=== PATIENT | male | born 2000 | race African-American/Black ===

== ENCOUNTER 2023-11-20 04:33 | Emergency (ER) | payer SELFPAY ==
[~2023-11-20] VITALS: Ht 180.3 cm; Wt 70.0 kg
[2023-11-20] MEDS ORDERED: TETANUS, DIPHTHERIA, PERTUSSIS VAC/PF 0.5ML (>10YR OLD) IM ONE (04:45)
[2023-11-20] MEDS ORDERED: CEFTRIAXONE 1GM/50ML 50 ML IV ONE (04:45)
[2023-11-20 05:00] VITALS: PULSE 118; RESP 20
[2023-11-20] MEDS ORDERED: MIDAZOLAM HCL 2 MG/2 ML VIAL ONE (05:09)
[2023-11-20] MEDS ORDERED: FENTANYL 2500MCG/250ML PMX 250 ML IV ONE (05:15)
[2023-11-20] MEDS ORDERED: CEFTRIAXONE 1GM/50ML 50 ML IV NR (05:15)
[2023-11-20 05:42] VITALS: O2SAT 100
[2023-11-20] MEDS: KETAMINE HCL 50 MG/ML 10ML IM ONE ×2 (05:42)
[2023-11-20] MEDS: PROPOFOL 10MG/ML 100ML 100 ML IV SCH (05:42)
[2023-11-20] MEDS: MIDAZOLAM HCL 2 MG/2 ML VIAL IV ONE (05:42)
[2023-11-20 05:54] VITALS: BP 175/84; PULSE 110; RESP 23
[2023-11-20] MEDS: FENTANYL CITRATE 2,500 MCG in SODIUM CHLORIDE 0.9% 200 ML IV PRN (05:54)
[2023-11-20] MEDS ORDERED: ETOMIDATE 2MG/ML 10ML VIAL IV ONE (09:00)
== END 2023-11-20 05:50 | disposition short-term general hospital (02) ==
LOC: ER 04:39 → EDBD 04:39 → ER 05:50
DX: S00.81XA Abrasion of other part of head, initial encounter (principal); S81.031A Puncture wound without foreign body, right knee, initial encounter; Y08.89XA Assault by other specified means, initial encounter; Y93.89 Activity, other specified; Y92.89 Other specified places as the place of occurrence of the external cause; Y99.8 Other external cause status
CPT/HCPCS: 71045; 72170; 31500; 96365; 96372; 99291; J3490 ×2; J2250; J2704; J0330; Z7610; J3010